=== PATIENT | female | born 1960 | race Caucasian/White ===

== ENCOUNTER 2017-05-07 07:31 | Emergency (ER) | payer OTHER ==
[2017-05-07 08:03] VITALS: BP 176/104
--- NOTE | 2017-05-07 08:04 | UC ---
Back Pain HPI - HPI Summary HPI Summary: 5 DAYS OF PAIN UPPER BACK BETWEEN SHOULDER BLADES. WORSE AT NIGHT. FEELS LIKE SHE IS GETTING MUSCLE SPASMS IN HER RIB CAGE. PAIN WITH DEEP INSPIRATION. GETTING WORSE. NO DISCRETE INJURY. DENIES CP, SWEATS, SOB, NAUSEA. NO FEVER OR COUGH. - History of Current Complaint Stated Complaint: BACK PAIN Time Seen by Provider: 05/07/17 07:41 Hx Obtained From: Patient Onset/Duration: Gradual Onset, Lasting Days, Still Present Timing: Intermittent Severity Initially: Moderate Severity Currently: Severe Pain Intensity: 9 Pain Scale Used: 0-10 Numeric Back Pain: Is Discrete @ - UPPER BACK Character: Sharp, Spasmodic Aggravating: Movement Alleviating: Rest Associated Signs And Symptoms: Positive: Negative - Allergies/Home Medications Allergies/Adverse Reactions: Allergies Allergy/AdvReac Type Severity Reaction Status Date / Time Aspirin Allergy Anaphylatic Verified 05/07/17 07:53 Shock Azithromycin Allergy Hives Verified 05/07/17 07:53 Hydrocortisone Allergy Headache Verified 05/07/17 07:53 [From Cortizone-5] Ibuprofen Allergy Anaphylatic Verified 05/07/17 07:53 Shock Prednisone Allergy FACIAL Verified 05/07/17 07:53 FLUSHING, FACE FEELS LIKE ITS ON FIRE Home Medications: Home Medications Cholecalciferol [Vitamin D3] 1 tab PO DAILY 05/07/17 [History Confirmed 05/07/17 ] Fexofenadine (NF) [Fifi 180 (NF)] 1 tab PO DAILY 05/07/17 [History Confirmed 05/07/17] Glucosamine-Chondroitin [Glucosamine/Chondroitin P 500-400 mg] 1 tab PO DAILY [History Confirmed 05/07/17] Lisinopril [Zestril 20 MG-] 1 tab PO DAILY 05/07/17 [History Confirmed 05/07/17] Triamterene/HCTZ 37.5-25 MG* [Dyazide CAP*] 1 tab PO DAILY 05/07/17 [History Confirmed 05/07/17] Tumeric 500 mg PO DAILY 05/07/17 [History Confirmed 05/07/17] PMH/Surg Hx/FS Hx/Imm Hx Cardiovascular History: Hypertension Cancer History: Breast Cancer - Surgical History Surgical History: Yes Surgery Procedure, Year, and Place: Lt BREAST BS - MALIGNANT - THEN 10/04/15 Lt LUMPECTOMY. C SECTION, BUNIONECTOMY;DEMETRICE KNEE;TONSILECTOMY; BONE CYST; LAP NASAL SURG - Family History Known Family History: Positive: Cardiac Disease, Hypertension - Social History Alcohol Use: Daily Alcohol Amount: 1 daily Substance Use Type: None Smoking Status (MU): Former Smoker Amount Used/How Often: 1/2 PPD X 16 YEARS Have You Smoked in the Last Year: No When Did the Patient Quit Smoking/Using Tobacco: 1991 - Immunization History Most Recent Tetanus Shot: UTD Review of Systems Constitutional: Negative Skin: Negative Respiratory: Other - PLEURITIC PAIN Cardiovascular: Other - TACHY Gastrointestinal: Negative Psychological: Anxious All Other Systems Reviewed And Are Negative: Yes Physical Exam Triage Information Reviewed: Yes Appearance: Well-Appearing, No Pain Distress, Well-Nourished Vital Signs: Initial Vital Signs Temp 98.2 F 05/07/17 07:38 Pulse 105 05/07/17 07:38 Resp 16 05/07/17 07:38 BP 195/99 05/07/17 07:38 Pulse Ox 97 05/07/17 07:38 Vital Signs Reviewed: Yes Eyes: Positive: Conjunctiva Clear ENT: Positive: Pharynx normal Neck: Positive: Supple, Nontender, No Lymphadenopathy Respiratory Exam: Normal Cardiovascular: Positive: Tachycardia Abdomen Description: Positive: Soft Musculoskeletal: Positive: No Edema Neurological: Positive: Alert Psychological: Positive: Normal Response To Family, Age Appropriate Behavior Skin: Negative: rashes Diagnostics - EKG Cardiac Rate: NL - 93 BPM. RBBB, LPFB Ectopy: None Back Pain Course/Dx - Course Course Of Treatment: GIVEN ELEVATED BP, ELEVATED PULSE, ATYPICAL PRESENTATION OF PAIN AND ABNORMAL EKG WILL SEND TO ER FOR FURTHER EVAL. - Differential Dx/Diagnosis Provider Diagnoses: UPPER BACK PAIN/SPASM - Physician Notifications Discussed Care With: NATHALIE ARGUETA NURSE - TO [facility] [place] ER BY PRIVATE CAR Time Discussed With Above Provider: 08:18 Discharge - Discharge Plan Condition: Stable Disposition: AGAINST MEDICAL ADVICE Referrals: Marc Das MD [Primary Care Provider] -
== END 2017-05-07 08:22 | disposition left against medical advice (07) ==
LOC: UCEAST 07:31
DX: M54.9 Dorsalgia, unspecified (principal); M62.830 Muscle spasm of back; I10 Essential (primary) hypertension; Z87.891 Personal history of nicotine dependence
CPT/HCPCS: 93005; 99212; G0463

== ENCOUNTER 2017-05-07 08:34 | Emergency (ER) | payer OTHER ==
[2017-05-07] MEDS ORDERED: HYDROcodone/ACETAMIN 5-325 MG* 1 TAB PO ONE (09:42)
--- NOTE | 2017-05-07 09:46 | ED ---
Back Pain - HPI Summary HPI Summary: 56 female presents with 5 days of pain in upper back in betwen shoulder blades. Pain is getting worse over the past couple of days, feels as though she is having muscle spasms which bring her to her knees. Also states she has more pain with deep inspiration. 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 Also states she has been under a lot of stress. Was seen at urgent care who sen her to ER for further evaluation due to vitals, abnormal EKG and complaints. Denies C/P, SOB, nausea, fever, cough, difficulty breathing, abdominal pain, sweats and history of similar pain. She states the pain gets worse with moving and changing positions but is better at rest. Has not taken any medication for her pain and symptoms. Denies weakness, numbness/tingling and bladder/bowel incontinence, saddle anesthesia. - History of Current Complaint Chief Complaint: EDBackInjuryPain Stated Complaint: BACK PAIN/ABDNORMAL EKG Time Seen by Provider: 05/07/17 08:56 Hx Obtained From: Patient, Family/Tour Operator - Onset/Duration: Sudden Onset, Lasting Days - 5, Still Present, Worse Since Onset/Duration: Started Days Ago Timing: Constant, Intermittent - worse with movement and changing position Back Pain Location: Is Discrete @ - mid upper back with radiation into rib cage Severity Initially: Mild Severity Currently: Moderate Pain Intensity: 8 Pain Scale Used: 0-10 Numeric - with cramping 4/10 with rest Character: Sharp, Aching, Spasmodic Aggravating Symptom(s): Movement Alleviating Symptom(s): Rest Associated Signs And Symptoms: Positive: Negative - Risk Factors AAA Risk Factors: Smoking - former smoker, no longer, Hypertension TAD Risk Factors: Negative Cauda Equina Risk Factors: Saddle Anesthesia Epidural Abscess Risk Factors: Negative - Allergies/Home Medications Allergies/Adverse Reactions: Allergies Allergy/AdvReac Type Severity Reaction Status Date / Time Aspirin Allergy Anaphylatic Verified 05/07/17 07:53 Shock Azithromycin Allergy Hives Verified 05/07/17 07:53 Hydrocortisone Allergy Headache Verified 05/07/17 07:53 [From Cortizone-5] Ibuprofen Allergy Anaphylatic Verified 05/07/17 07:53 Shock Prednisone Allergy FACIAL Verified 05/07/17 07:53 FLUSHING, FACE FEELS LIKE ITS ON FIRE Home Medications: Home Medications Cholecalciferol TAB* [Vitamin D TAB*] 1,000 unit PO DAILY 05/07/17 [History Confirmed 05/07/17] Fexofenadine (NF) [Fifi 180 (NF)] 180 mg PO DAILY 05/07/17 [History Confirmed 05/07/17] [id number]-[id number]-[id number] C- [Glucosamine Chondroitin] 1 tab PO DAILY [History Confirmed 05/07/17] Letrozole (NF) [Femara (NF)] 2.5 mg PO DAILY 05/07/17 [History Confirmed ] Lisinopril TAB* [Prinivil TAB*] 20 mg PO DAILY 05/07/17 [History Confirmed 05/07] PMH/Surg Hx/FS Hx/Imm Hx Endocrine/Hematology History: Denies: Hx Diabetes Cardiovascular History: Reports: Hx Hypertension Denies: Hx Pacemaker/ICD Respiratory History: Reports: Other Respiratory Problems/Disorders - HX OF NASAL POLYP SURGERY- IN THE PAST History: Denies: Hx Renal Disease Musculoskeletal History: Reports: Hx Arthritis - MILD- KNEES AND HANDS Sensory History: Reports: Hx Contacts or Glasses - GLASSES Denies: Hx Hearing Aid Opthamlomology History: Reports: Hx Contacts or Glasses - GLASSES Psychiatric History: Denies: Hx Panic Disorder - Cancer History Cancer Type, Location and Year: breast -left Hx Chemotherapy: Yes - 2014 Hx Radiation Therapy: Yes - Surgical History Surgery Procedure, Year, and Place: Lt BREAST BS - MALIGNANT - THEN 10/04/15 Lt LUMPECTOMY. C SECTION, BUNIONECTOMY;DEMETRICE KNEE;TONSILECTOMY; BONE CYST; LAP NASAL SURG Hx Anesthesia Reactions: No Infectious Disease History: No Infectious Disease History: Denies: Hx Clostridium Difficile, Hx Hepatitis, Hx Human Immunodeficiency Virus (HIV), Hx of Known/Suspected MRSA, Hx Shingles, Hx Tuberculosis, Hx Known/ Suspected VRE, Hx Known/Suspected VRSA, History Other Infectious Disease, Traveled Outside the [place] in Last 30 Days - Family History Known Family History: Positive: Cardiac Disease, Hypertension - Social History Alcohol Use: Daily Alcohol Amount: 1 daily Substance Use Type: Reports: None Smoking Status (MU): Former Smoker Amount Used/How Often: 1/2 PPD X 16 YEARS Have You Smoked in the Last Year: No Review of Systems Constitutional: Negative Cardiovascular: Negative Respiratory: Negative Gastrointestinal: Negative Positive: Arthralgia, Myalgia - upper back Skin: Negative Neurological: Negative All Other Systems Reviewed And Are Negative: Yes Physical Exam - Summary Physical Exam Summary: VITAL SIGNS:~Reviewed. GENERAL:~ Patient is a well-developed and nourished female who is lying comfortable in the stretcher.~ Patient is not in any acute respiratory distress. HEAD AND FACE:~No signs of trauma.~ No ecchymosis, hematomas or skull depressions. No sinus tenderness. EYES:~PERRLA, EOMI x 2, No injected conjunctiva, no nystagmus. EARS:~Hearing grossly intact. Ear canals and tympanic membranes are within normal limits. MOUTH:~Oropharynx within normal limits. NECK:~Supple, trachea is midline, no adenopathy, no JVD, no carotid bruit, no c- spine tenderness, neck with full ROM. CHEST:~Symmetric, no tenderness at palpation LUNGS:~Clear to auscultation bilaterally. No wheezing or crackles. CVS:~Regular rate and rhythm, S1 and S2 present, no murmurs or gallops appreciated. ABDOMEN:~Soft, non-tender. No signs of distention. No rebound no guarding, and no masses palpated. Bowel sounds are normal. EXTREMITIES:~FROM in all major joints, no edema, no cyanosis or clubbing. NEURO:~Alert and oriented x 3. No acute neurological deficits. Speech is normal and follows commands. SKIN:~Dry and warm Triage Information Reviewed: Yes Vital Signs On Initial Exam: Initial Vitals Temp Pulse Resp BP Pulse Ox 98.2 F 102 22 171/97 97 05/07/17 08:35 05/07/17 08:35 05/07/17 08:35 05/07/17 08:35 05/07/17 08:35 tachycardia and BP noted which is a reason patient was sent to ER. However throughout stay vitals significantly improved without intervention. BP was taken on arms and legs and were very similar in range, no significant difference. Vital Signs Reviewed: Yes Appearance: Positive: Well-Appearing, Well-Nourished, Pain Distress - moderate with movement Skin: Positive: Warm, Skin Color Reflects Adequate Perfusion, Dry. Negative: Cold, Numb, Tender, Diaphoretic Head/Face: Positive: Normal Head/Face Inspection Eyes: Positive: EOMI, SHADI, Conjunctiva Clear ENT: Positive: Normal ENT inspection, Hearing grossly normal, Pharynx normal, TMs normal Neck: Positive: Supple, Nontender Respiratory/Lung Sounds: Positive: Clear to Auscultation, Breath Sounds Present. Negative: Rales, Rhonchi, Wheezes Cardiovascular: Positive: Normal, RRR, Pulses are Symmetrical in both Upper and Lower Extremities - 2+ all extremities, Tachycardia. Negative: Murmur, Rub, Leg Edema Left, Leg Edema Right Abdomen Description: Positive: Nontender, No Organomegaly, Soft, Guarding. Negative: Bruit, CVA Tenderness (R), CVA Tenderness (L), Distended, McBurney's Point Tenderness, Peritoneal Signs, Pulsatile Mass Bowel Sounds: Positive: Present Musculoskeletal: Positive: Normal, Strength/ROM Intact, Pain @ - palpation of mid back in between shoulder blades, Other - no signs of obvious deformity or trauma. Negative: Limited @, Interruption @ Neurological: Positive: Normal, Sensory/Motor Intact, Alert, Oriented to Person Place, Time, CN Intact II-III, Reflexes Intact, NV Bundle Intact Distally, Normal Gait Psychiatric: Positive: Affect/Mood Appropriate - [place] Coma Scale Coma Scale Total: 15 Diagnostics - Vital Signs Vital Signs Temp Pulse Resp BP Pulse Ox 05/07/17 09:34 98.2 F 102 22 171/97 97 05/07/17 08:35 98.2 F 102 22 171/97 97 - Laboratory Result Diagrams: 05/07/17 10:07 05/07/17 10:07 Lab Statement: Any lab studies that have been ordered have been reviewed, and results considered in the medical decision making process. - CT CTA chest/abd CT Interpretation: No Acute Changes - Right lobe hepatic cyst. No evidence of cholelithiasis or biliary duct dilatation is noted. No aneurysm or aortic dissection is noted. - EKG EKG Cardiac Rate: NL EKG Rhythm: Sinus Rhythm ST Segment: Normal Ectopy: None EKG Interpretation: abnormal EKG, RBBB, consider left atrial enlargment Re-Evaluation - Re-Evaluation First Eval Re-Evaluation Time: 11:25 Change: Improved Comment: had relief from pain however is having spasms still. will given muscle relaxer and re-check. waiting for CT. BP and tachycardia improving. Second Eval Re-Evaluation Time: 12:58 Change: Improved - patient feeling better after medications. updated on lab and imaging results. BP and HR much improved. Back Pain Course/Dx - Course Course Of Treatment: given norco and norflex for pain and spasms and had significatn relief. CT scan ordered and negative for aneurysm or any other etiology causing her pain other than MSK. Patient was made aware and educated. Unable to take antiinflammatories which is probably the reason symptoms have only worsened and pain has not been controlled. allergies to NSAIDs and steroids. Given pain management and muscle relaxer to take at home for the next 5-7 days. Rest, heat and massage. Follow up with PCP. Aware of worsening signs and symptoms to watch out for. Vitals signifcantly improved once pain was decreased and throughout stay in ED to normal ranges. - Diagnoses Differential Diagnosis/HQI/PQRI: Positive: Aneurysm, Fracture, Strain, Sprain Provider Diagnoses: Muscle strain of left upper back, Muscle strain of right upper back, Acute upper back pain Discharge - Discharge Plan Condition: Stable Disposition: HOME Prescriptions: Cyclobenzaprine TAB* [Flexeril 10 MG TAB*] 10 mg PO BID PRN #16 tab PRN Reason: Spasms HYDROcodone/ACETAMIN 5-325 MG* [[place] 5-325 TAB*] 1 tab PO Q6H PRN #16 tab MDD 2 PRN Reason: Pain Patient Education Materials: Muscle Strain (ED), Muscle Spasm (ED), Back Pain ( ED) Referrals: Marc Das MD [Primary Care Provider] - Additional Instructions: Take prescribed medication to help with pain and and spasms. Drink lots of water and get plenty of rest. Try and avoid physical activity. Follow up with your primary care doctor. If you develop new, worsening or persistent symptoms please return to ED.
[2017-05-07 10:24] LABS: Hematocrit 43 % (35-47); Hemoglobin 14.5 g/dl (12.0-16.0); Mean Corpuscular HGB Conc 34 g/dl (31-36); Mean Corpuscular Hemoglobin 33 pg (27-31); Mean Corpuscular Volume 97 fL (80-97); Mean Platelet Volume 8 um3 (7.4-10.4); Red Blood Count 4.41 10^6/ul (4.0-5.4); Red Cell Distribution Width 14 % (10.5-15); White Blood Count 6.8 10^3/ul (3.5-10.8)
[2017-05-07 10:42] LABS: Albumin 4.2 g/dL (3.2-5.2); BUN/Creatinine Ratio 16.2 (8-20); Calcium 9.6 mg/dL (8.6-10.3); EGFR African American 114.3 (>60); EGFR Non-African American 88.9 (>60); Globulin 2.4 g/dL (2-4); Potassium 4.1 mmol/L (3.5-5.0); Total Protein 6.6 g/dL (6.4-8.9)
[2017-05-07] MEDS ORDERED: Iohexol 300* (CONTRAST) 10 ML SDV IV ONE (11:20)
[2017-05-07] MEDS ORDERED: Orphenadrine Citrate IV* 30 MG/ML 2 ML VIAL IV ONE (11:24)
[2017-05-07] MEDS ORDERED: Iohexol 350* (CONTRAST) 500 ML MDV IV ONE (11:58)
--- NOTE | 2017-05-07 12:55 | RAD ---
Indication: Back pain, chest pain. Contrast: Administered 99.8 ml of OMNIPAQUE 350 mgi/ml CTA of the chest was performed in contrast administration. Coronal and sagittal reconstructed images were obtained. No evidence of aortic dissection or aneurysmal dilatation of the abdominal aorta is noted. There is no mediastinal or hilar adenopathy noted. The heart demonstrates no pericardial effusion. The trachea and major bronchi appear patent. Lung castaneda demonstrate no evidence of alveolar consolidation. CT of the abdomen demonstrates hepatic cysts. Pancreas demonstrates no mass or pancreatic duct dilatation. The left demonstrates no calcified gallstones. No pericholecystic fluid or wall thickening is identified. IMPRESSION: Right lobe hepatic cyst. No evidence of cholelithiasis or biliary duct dilatation is noted. No aneurysm or aortic dissection is noted.
[2017-05-07 13:30] VITALS: BP 128/86
== END 2017-05-07 13:34 | disposition home or self-care (01) ==
LOC: ED 08:34
DX: S23.3XXA Sprain of ligaments of thoracic spine, initial encounter (principal); Z87.891 Personal history of nicotine dependence; I10 Essential (primary) hypertension; I45.10 Unspecified right bundle-branch block; X58.XXXA Exposure to other specified factors, initial encounter; Y92.9 Unspecified place or not applicable
CPT/HCPCS: 36415; 71275; 74175; 80053; 83605; 84484; 85025; 86850; 86900; 86901; 96374; 99283; J2360; Q9967

== ENCOUNTER 2019-04-01 11:14 | Emergency (ER) | payer OTHER ==
--- NOTE | 2019-04-01 11:22 | UC ---
Lower Extremity/Ankle HPI - HPI Summary HPI Summary: 58 yo female presents with RIGHT foot pain. She tells me that over the last 2-3 days she has noticed pain to the inside arch of her right foot. Worse with ambulation and weight bearing. She has not rested it or taken anything OTC for her discomfort. She tells me that she has a torn meniscus in her LEFT knee and has been using a cane due to this. Notes that she does walk with her right foot slightly inverted to compensate for her left knee. Denies specific injury. - History of Current Complaint Stated Complaint: RT FOOT INJURY Time Seen by Provider: 04/01/19 11:21 Hx Obtained From: Patient Onset/Duration: Gradual Onset Severity Initially: Moderate Severity Currently: Moderate Pain Intensity: 5 Pain Scale Used: 0-10 Numeric - Allergies/Home Medications Allergies/Adverse Reactions: Allergies Allergy/AdvReac Type Severity Reaction Status Date / Time aspirin Allergy Anaphylatic Verified 04/01/19 11:26 Shock hydrocortisone Allergy Headache Verified 04/01/19 11:26 ibuprofen Allergy Anaphylatic Verified 04/01/19 11:26 Shock prednisone Allergy Flushing Verified 04/01/19 11:26 PMH/Surg Hx/FS Hx/Imm Hx - Additional Past Medical History Additional PMH: BRCA Cardiovascular History: Hypertension - Surgical History Surgical History: Yes Surgery Procedure, Year, and Place: BILATERAL BREAST BX - MALIGNANT - THEN 10/04 Lt LUMPECTOMY. C SECTION, BUNIONECTOMY;DEMETRICE KNEE;TONSILECTOMY; BONE CYST; LAP NASAL SURG - Family History Known Family History: Positive: Cardiac Disease, Hypertension - Social History Lives: With Family Alcohol Use: Daily Alcohol Amount: 1 daily Substance Use Type: None Smoking Status (MU): Former Smoker Amount Used/How Often: 1/2 PPD X 16 YEARS Have You Smoked in the Last Year: No When Did the Patient Quit Smoking/Using Tobacco: 1991 - Immunization History Most Recent Tetanus Shot: UTD Review of Systems All Other Systems Reviewed And Are Negative: Yes Constitutional: Positive: Negative Respiratory: Positive: Negative Cardiovascular: Positive: Negative Neurovascular: Positive: Negative Musculoskeletal: Positive: Other: - Right foot pain Neurological: Positive: Negative Psychological: Positive: Negative Physical Exam - Summary Physical Exam Summary: GENERAL: NAD. WDWN. No pain distress. SKIN: No rashes, sores, lesions, or open wounds. CHEST: No accessory muscle use. Breathing comfortably and in no distress. CV: Pulses intact PT and DP. Cap refill <2seconds MSK: RIGHT FOOT: Mild TTP at medial arch without specific point tenderness. FROM at right ankle without tenderness. Strength 5/5. No edema or obvious bony deformities. NEURO: Alert. Sensations intact and symmetric B/L LEs PSYCH: Age appropriate behavior. Triage Information Reviewed: Yes Vital Signs: Vital Signs: Temp Pulse Resp BP Pulse Ox 97.9 F 92 18 151/88 98 04/01/19 11:22 04/01/19 11:22 04/01/19 11:22 04/01/19 11:22 04/01/19 11:22 Vital Signs Reviewed: Yes Lower Extremity Course/Dx - Course Course Of Treatment: XR: IMPRESSION: NO ACUTE OSSEOUS INJURY. IF SYMPTOMS PERSIST, RECOMMEND REPEAT IMAGING. Suspect strain vs tendinitis given her abnormal gait due to left knee pain. Discussed trying shoe inserts, walking boot, or post-op shoe and pt elected to try post-op shoe. Advised to RICE and take tylenol for discomfort. F/u with PCP next week if symptoms do not improve - Differential Dx/Diagnosis Provider Diagnosis: Right foot strain Discharge - Sign-Out/Discharge Documenting (check all that apply): Patient Departure All imaging exams completed and their final reports reviewed: Yes - Discharge Plan Condition: Stable Disposition: HOME Patient Education Materials: Metatarsalgia (DC) Referrals: Marc Das MD [Primary Care Provider] - Additional Instructions: If you develop a fever, shortness of breath, chest pain, new or worsening symptoms - please call your PCP or go to the ED immediately. Your blood pressure was high at todays visit. Please see your primary provider within 4 weeks for recheck and re-evaluation. 1) Rest, Ice, and elevate your foot to reduce pain and discomfort 2) I recommend trying to wear comfortable supportive shoes with a shoe insert 3) Try using the post-op shoe for pain relief 4) Follow up with your PCP next week if your symptoms have not improved with appropriate rest - Billing Disposition and Condition Condition: STABLE Disposition: Home
[2019-04-01 11:25] VITALS: BP 151/88
== END 2019-04-01 12:50 | disposition home or self-care (01) ==
LOC: UCEAST 11:14
DX: S93.601A Unspecified sprain of right foot, initial encounter (principal); X50.0XXA Overexertion from strenuous movement or load, initial encounter; X50.3XXA Overexertion from repetitive movements, initial encounter; Y93.01 Activity, walking, marching and hiking; Y92.9 Unspecified place or not applicable; I10 Essential (primary) hypertension; Z87.891 Personal history of nicotine dependence
CPT/HCPCS: 99213; G0463

== ENCOUNTER 2020-11-12 12:14 | Observation (INO) ==
[~2020-11-12 12:14] MED LIST: Buffered Lidocaine 1% SYRIN 1 ml INTRADERM ONE; Dexamethasone IV 4 MG/ML VIAL 1 ml VIAL ONE; Famotidine IV 10 MG/ML 2 ml VIAL (20 mg) IV ONE; Lactated Ringers 1000 ml BAG 1,000 ML IV SCH; Lidocaine 2% PF 5 ML VIAL ONE; Midazolam 2 mg/2 ml VIAL 1 mg/ml 2 ml VIAL (2 mg) ONE; Ondansetron 4 mg VIAL 2 MG/ML 2 ml VIAL ONE; Phenylephrine IV 10 MG/ML 1 ml VIAL ONE; Propofol 10 MG/ML 20 ML BTL ONE; Succinylcholine 200 mg VIAL 20 mg/ml 10 ml VIAL (200 mg) ONE; fentaNYL 250 mcg/5 ml 50 MCG/ML 5 ml VIAL (250 MCG) ONE
[2020-11-12] MEDS ORDERED: Famotidine IV 10 MG/ML 2 ml VIAL (20 mg) ONE (12:52)
[2020-11-12] MEDS ORDERED: ceFAZolin 2 GM PREMIX 2 GM/50 ML BAG ONE (12:52)
[2020-11-12] MEDS ORDERED: ROPIVACAINE 5 MG/ML 30 ML BTL (0.5%) ONE ×2 (13:41→14:19)
[2020-11-12] MEDS ORDERED: Lidocaine 1% MPF 5 ML VIAL ONE (13:41)
[2020-11-12] MEDS ORDERED: Ropivacaine (OR use only) 2 MG/ML 10 ML ONE ×2 (13:53)
[2020-11-12] MEDS ORDERED: Propofol 10 MG/ML 20 ML BTL ONE (13:54)
[2020-11-12] MEDS ORDERED: Buffered Lidocaine 1% SYRIN 1 ml INTRADERM ONE (14:17)
[2020-11-12] MEDS ORDERED: Midazolam 2 mg/2 ml VIAL 1 mg/ml 2 ml VIAL (2 mg) ONE ×2 (15:08→15:20)
[2020-11-12] MEDS ORDERED: Lidocaine 2% PF 10 ML AMP ONE (15:27)
[2020-11-12] MEDS ORDERED: diPHENhydraMINE IV 50 MG/ML 1 ml VIAL (BENADRYL) IV PRN (15:39)
[2020-11-12] MEDS ORDERED: Ondansetron 4 mg VIAL 2 MG/ML 2 ml VIAL IV PRN (15:39)
[2020-11-12] MEDS ORDERED: Ondansetron ODT 4 mg TAB 4 MG TAB PO PRN (15:39)
[2020-11-12] MEDS ORDERED: Lactulose 30 ml UDC PO PRN (15:39)
[2020-11-12] MEDS ORDERED: Morphine 2 MG/ML SYRINGE IV PRN (15:39)
[2020-11-12] MEDS ORDERED: Magnesium Hydroxide LIQ 30 ML UDC PO PRN (15:39)
[2020-11-12] MEDS ORDERED: diPHENhydraMINE 25 mg TAB PO PRN (15:39)
[2020-11-12] MEDS ORDERED: Lactated Ringers 1000 ml BAG 1,000 ML IV SCH (16:00)
[2020-11-12] MEDS ORDERED: Acetaminophen IV 1 GM/100ML 100 ML ONE (16:10)
[2020-11-12] MEDS ORDERED: Naloxone 0.4 mg VIAL 0.4 mg/ml 1 ml VIAL IV PRN (16:29)
[2020-11-12] MEDS ORDERED: DiMENhydriNATE IV 50 mg/ml 1 ml VIAL IV PUSH PRN (16:29)
[2020-11-12] MEDS ORDERED: HYDROmorphone 1 MG/1 ML SYRINGE IV PRN (16:29)
[2020-11-12] MEDS ORDERED: EPHEDrine (Pressors) 50 MG/ML VIAL ONE (17:16)
[2020-11-12] MEDS: Magnesium Hydroxide LIQ 30 ML UDC PO SCH (20:22)
[2020-11-13] MEDS: ceFAZolin 1 GM ADVAN 1 GM in NS 0.9% 50 ML 50 ML IVPB SCH ×2 (00:10→08:00)
[2020-11-13 04:34] LABS: Hematocrit 35 % (35-47); Hemoglobin 11.9 g/dL (12.0-16.0); Mean Platelet Volume 7.4 fL (7.4-10.4); Platelet Count 209 10^3/uL (150-450)
[2020-11-13 04:52] LABS: BUN/Creatinine Ratio 16.7 (8-20); Calcium 8.9 mg/dL (8.6-10.3); EGFR African American 90.6 (>60); EGFR Non-African American 74.8 (>60); Potassium 4.1 mmol/L (3.5-5.0)
[2020-11-13] MEDS ORDERED: NS 0.9% 50 ML 50 ML ONE (07:53)
[2020-11-13] MEDS: Magnesium Hydroxide LIQ 30 ML UDC PO SCH (08:00)
[2020-11-13] MEDS ORDERED: Vitamin THERAPEUTIC TAB PO SCH (09:00)
[2020-11-13] MEDS ORDERED: CMCS: Letrozole 2.5 MG TAB (NF) PO SCH (09:00)
[2020-11-13 11:46] VITALS: BP 158/78
== END 2020-11-13 17:10 | disposition home or self-care (01) ==
LOC: ICU 12:14 → OR 12:14 → SSU 11-13 11:34
PROVIDERS: ADMIT Orthopaedic Surgery Adult Reconstructive Orthopaedic Surgery; ATTEND Orthopaedic Surgery Adult Reconstructive Orthopaedic Surgery